=== PATIENT | female | born 1930 | race African-American/Black ===

== ENCOUNTER 2016-11-05 13:16 | Inpatient (IN) | payer MEDICARE, OTHER ==
--- NOTE | ~2016-11-05 | DS ---
Discharge Summary [facility] [address] [place]. [address] NAME: SAIRA PALM : 32 STATUS : DIS IN PAT#: [id number] AGE: 86 ADM/REG DATE : 11/05/16 MR#: [id number] REPORT SERV DATE: 11/13/16 DICTATED BY: STACY FERMIN DATE: 11/12/16 REPORT STATUS : Draft TRANSCRIBED BY: MODL DATE: 11/12/16 ADMISSION DATE: 11/05/2016 DISCHARGE DATE: 11/12/2016 REASON FOR ADMISSION: 1. Dehydration. 2. Acute kidney injury. 3. Hypernatremia. HPI: Please refer Dr. Mujica history and physical dated 11/05/2016 for complete details on the patient's admission. In brief, the patient was admitted to the Hospitalist Service for management of several issues. HOSPITAL COURSE: The patient had an uncomplicated hospital course. The patient had a recent visit to [place] [facility] at end of October after sustaining a fall. She had a negative workup and was sent back to [facility]. Of note her creatinine was 1.4 at [place]. Just a week after that episode when she visited [facility] on the 11/05/2016, her creatinine was 7.73 with a BUN of 147, procalcitonin of 4.5, sodium of 159. Clearly volume depleted. She had a lactic acid done in the ER, which was 1.9. Influenza screen which was negative. Urinalysis was positive for UTI. Urine culture eventually grew out villarreal susceptible E. coli. She was started on aggressive IV fluids. MRI of her brain without contrast was performed, which showed no acute infarction, [id number] general atrophy, large amount of MCA territory frontoparietotemporal encephalomalacia from a remote infarction. There is a right anterior fossa meningioma with associated edema. A modified barium swallow study showed no evidence of aspiration or penetration during the exam, but speech therapist recommended a pureed diet. The patient does have a known history of a thyroid mass and has been trying to get in to see an group therapy counselor or an ENT. The patient had received several volumes of fluids, her hypernatremia had resolved, her acute kidney injury had resolved although her creatinine is not at baseline. It did come down to 3 at the time of dictation. After a long talk with the daughter, the daughter who is the power of immigration attorney made it clear that the patient is a do not resuscitate and do not intubate, and I did have concerns of this being the initial phases of a vicious cycle of continual rehospitalization from dehydration. The daughter made clear to me that she did not want her mom to coming back to the hospital in any event and would like to pursue hospice, therefore, we are discharging the patient is stable condition back to [facility] with hospice. DISCHARGE DIAGNOSES: 1. Acute kidney injury, resolving with creatinine at 3 at time of discharge with baseline around 1.4. 2. Metabolic acidosis, stable. 3. E. coli urinary tract infection. 4. History of meningioma. 5. History of thyroid mass with some tracheal deviation. 6. 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 7. DNR/DNI, overall poor prognosis. Discharge Summary [address] [address] NAME: SAIRA PALM : 31 STATUS : DIS IN PAT#: [id number] AGE: 86 ADM/REG DATE : 11/05/16 MR#: [id number] REPORT SERV DATE: 11/13/16 DICTATED BY: STACY FERMIN DATE: 11/12/16 REPORT STATUS : Draft TRANSCRIBED BY: KARIN DATE: 11/12/16 PROCEDURES: Include: 1. MRI of the brain without contrast. 2. Chest x-ray. 3. Modified barium swallow study. DISCHARGE MEDICATIONS: Include: 1. Allopurinol 150 mg daily. 2. Vitamin D. 3. [place] p.r.n. pain. 4. Synthroid 25 mcg daily. 5. MiraLAX daily. 6. Pravachol 40 mg daily. 7. Senna 2 tabs daily. 8. Zofran p.r.n. 9. Amlodipine 10 mg once a day. 10.Multivitamin. 11.Duricef 1000 mg twice a day for two more days. The patient was discharged back to [facility] with [facility] under hospice. The patient was a DNR/DNI. This is Stacy Fermin MD spending over 30 minutes in discharge planing and coordination care of Ms. Palm. SHARAN/KARIN Stacy Fermin MD / [id number] CC: Stacy Fermin MD
--- NOTE | ~2016-11-05 | HP ---
History And Physical [place] [id number] [facility] [place]. [address] NAME: SAIRA PALM : 31 STATUS : ADM IN PAT#: [id number] AGE: 86 ADM/REG DATE : 11/05/16 MR#: [id number] REPORT SERV DATE: 11/05/16 DICTATED BY: GARTH MUJICA DATE: 11/05/16 REPORT STATUS : Draft TRANSCRIBED BY: MODL DATE: 11/05/16 DATE OF ADMISSION: 11/05/2016 CHIEF COMPLAINT: Multiple. HISTORY OF PRESENT ILLNESS: The patient is an 86-year-old female, who currently resides in a mcc. She has a history of a previous significant stroke it sounds like it was hemorrhagic in nature required a craniotomy. This was back in several years ago. She also suffers from probable dementia. She is aphasic from the stroke and has a right-sided hemiparesis. She communicates by grunting and pointing, so she can provide no history. Her daughter is at bedside. She reports over the last four to five months she has had diminished p.o. intake and appetite. She has been drinking or eating normally for sometime. She feels like she developed some dementia symptoms. Over the last week, she had a fall. About a week ago, she presented to [facility] had a head CT, multiple x-rays done, no fractures were found, and she was ultimately sent home. Since the fall, her daughter reports she has really declined. She is to ambulate independently despite the fact that she had a right hemiparesis. Her leg was still quite functional on the right, although her arm is always been fairly more dramatically affected by the stroke. She ambulated without a walker. The last week she has not ambulated at all. She is no longer dressing herself or feeding herself when she was previously able to do these activities. Although there seems to be months of decline, it seemed to be more progressive over the last week. When I first saw her, they were no labs available. No x-rays and so much of the data was missing. At [facility], her CT brain was negative. She has not had any documented fevers that her daughter knows of. She has not had nausea, vomiting that she knows of. She has had no diarrhea that she knows of and she does not appear to be in any pain, but it is difficult to tell as she has a difficult time communicating. The patient also has been refusing to take her medications, and she does not seem to know what to do with food in her mouth or anything in her mouth. For that matter, she simply moves around and spits it out. PAST MEDICAL HISTORY: 1. 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 2. Dementia. 3. Hypertension. 4. Congestive heart failure. 5. CAD. 6. Hyperlipidemia. 7. Constipation. 8. Anemia. 9. Cataracts. 10.Type 2 diabetes mellitus. PAST SURGICAL HISTORY: She has had right thyroid surgery, brain surgery, and skin graft. SOCIAL HISTORY: She never smoked or drank. FAMILY HISTORY: Positive for CAD. History And Physical [address] [address] NAME: SAIRA PALM : 31 STATUS : ADM IN [facility]#: [id number] AGE: 86 ADM/REG DATE : 11/05/16 MR#: [id number] REPORT SERV DATE: 11/05/16 DICTATED BY: GARTH MUJICA DATE: 11/05/16 REPORT STATUS : Draft TRANSCRIBED BY: KARIN DATE: 11/05/16 ALLERGIES: NO KNOWN DRUG ALLERGIES. HOME MEDICATIONS: Reviewed and attached. REVIEW OF SYSTEMS: 10-point review of systems obtained. Pertinent positives as mentioned in the HPI. PHYSICAL EXAMINATION: VITAL SIGNS: BP 107/63, previously she was in the 80s over 50s, temp 97.6, pulse 75, respiratory rate 16, sats 96%. GENERAL: Elderly frail-appearing white female. HEENT: Normocephalic, atraumatic. Mouth is dry. NECK: Supple. HEART: Regular rate and rhythm. LUNGS: Diminished at the bases. ABDOMEN: Soft, nontender, nondistended. EXTREMITIES: Her hands and feet are all cool to the touch, but they are symmetrically cool. She has no peripheral edema present. I could not palpate either pulse in her foot. I could not even find her pulses with the Doppler, but her legs are warm and she has no ulcerations. NEURO: She has a dense hemiparesis on the right arm. In the right leg, she has some movement about the foot and she has some contraction of the thigh when she attempts to lift her legs, but she really cannot lift her right leg off the bed. The left leg she has minimal strength, and that one, she can lift it about a half an inch off the bed, but again it is difficult to tell she does not follow commands. Her left arm, she can squeeze my hand. She is pointing and grunting. She is aphasic. Cranial nerves 2 through 12 appear to be intact. LAB AND X-RAY: TSH 0.255. Chest x-ray is essentially shows a soft tissue mass displacing her trachea to the right of midline probably from enlarged left lobe of the thyroid. White count 13.5, H and H 13.7 and 40, platelet count is 355. Coags her INR is 1.7. Lactate is 1.9. Sodium 159, potassium 5.3, chloride 124, CO2 of 20 BUN and creatinine 147 and 7.73, glucose 122. LFTs ALT is 191, AST is 129, lipase is 1237. Troponin is 0.09. Flu swab is negative. Urinalysis shows 34 whites and trace leukocyte esterase, and rare clumps with 4 rbc's. EKG shows sinus tach. ASSESSMENT/PLAN: 1. Acute kidney injury pronounced with evidence of hypernatremia and likely severe free water deficit and volume depletion. Given that she is hypotensive in the emergency department, I think first and foremost, we must correct her volume status. She is going to get a total of a 2 L bolus here then we will give her an additional 2 L normal saline IV and we will also at the same time correct her free water deficit with D5W 100. Once her sodium is less than 148, then we will change her to half-normal saline 125 for maintenance. Hopefully with hydration free water replacement, her creatinine will improve. I did discuss with her daughter the significant nature of her injury today to her kidneys. This is likely multifactorial, volume depletion, free water deficit, also lack of p.o. intake. Her daughter is not interested in her mother History And Physical [place] [address] [address] [facility] [address] NAME: SAIRA PALM : 32 STATUS : ADM IN PAT#: [id number] AGE: 86 ADM/REG DATE : 11/05/16 MR#: [id number] REPORT SERV DATE: 11/05/16 DICTATED BY: GARTH MUJICA DATE: 11/05/16 REPORT STATUS : Draft TRANSCRIBED BY: MODL DATE: 11/05/16 receiving any type of dialysis given her dementia and comorbidities, I think this makes sense. We will proceed with supportive measures in the hope that we can reverse some of this. We will do CT abdomen and pelvis to rule out urinary obstruction. We will place a Dwyer catheter. Keep in's and out's and go from there. 2. Hypernatremia likely some component of volume depletion. Given hypotension, we will hydrate aggressively. We will also replace her free water with D5W. We will do serial labs and go from there. 3. Recent fall, initial head CT negative. 4. Worsening right hemiparesis with decline in physical status. Her right leg seems weaker than it was in the past. I think it is reasonable to perform an MRI to make sure she has not had a new stroke. 5. Urinary tract infection. We will treat with IV Rocephin. Culture her urine. 6. Nonpalpable pulses at the feet. Could not find them with the Doppler; however, she was hypotensive at that time. She does not have any real ulcerations about her feet. She does appear to be in pain in her leg, I could not find it in either foot even though she has movement in the left foot and she has some movement in the right foot. I do not think this vascular issues something acute and I think given her code status and preference for comfort measures, we should not pursue this aggressively. I suspect with some hydration and improvement in her pressure. Her pulses may improve in the feet. I did not order an arterial duplex at this time as I do not think it will change our management significantly. 7. Diabetes. We will add level 1 sliding scale. 8. Dementia likely advancing with worsening symptoms, symptomatology. She may need to be considered for hospice if her creatinine does not improve quickly. 9. History of coronary artery disease. 10.History of cerebrovascular accident with expressive aphasia and right hemiparesis with somewhat worsening hemiparesis please see #2 and 3. 11.Likely thyroid mass with some compression of her trachea, she does not seem to have any respiratory difficulties that she is having maybe some swallowing difficulties. She has been eating or drinking and she has been chewing things up and then refusing to swallow. We will do a modified barium swallow to start again based on her dementia and her current ongoing acute kidney injury. We will see how things look in 24 hours before we pursue this too aggressively. 12.Disposition, pending above. ADAM/MIESHAL Garth Mujica M.D. / [id number] CC: Messi Baumann M.D.
[2016-11-05 12:18] LABS: BASOPHILS 0.2 %; BASOPHILS ABSOLUTE 0.03 10/3/uL (0.0-0.16); EOSINOPHILS 0.2 %; EOSINOPHILS ABSOLUTE 0.03 10/3/uL (0.0-0.53); IMMATURE GRANULOCYTES 0.5 %; IMMATURE GRANULOCYTES ABSOLUTE 0.07 10/3/uL (0.0-0.11); LYMPHOCYTES 14.7 %; LYMPHOCYTES ABSOLUTE 1.99 10/3/uL (0.67-4.30); MEAN CORPUS HGB CONC 34.2 g/dL (32.0-36.0); MEAN CORPUSCULAR HEMOGLOB 30.6 pg (26.0-34.0); MEAN CORPUSCULAR VOLUME 89.7 fL (80-100); MEAN PLATELET VOLUME 11.6 fL (9.2-13.0); MONOCYTES 4.8 %; MONOCYTES ABSOLUTE 0.65 10/3/uL (0.21-1.20); NEUTROPHILS 79.6 %; NEUTROPHILS ABSOLUTE 10.77 10/3/uL (2.02-8.40); NUCLEATED RED BLOOD CELLS 0.4 /100WBC (0-0); PLATELET COUNT 355 10/3/uL (150-400); RBC DISTRIBUTION WIDTH 15.5 % (12.0-16.0)
[2016-11-05 12:19] LABS: ER CBC TAT 0 Hrs 10 Mins; HEMATOCRIT 40.1 % (36.0-48.0); HEMOGLOBIN 13.7 g/dL (12.0-16.0); MANUAL DIFF NO %; RED CELL COUNT 4.47 10/6/uL (4.0-5.6); WHITE BLOOD CELLS 13.5 10/3/uL (4.5-10.5)
[2016-11-05 12:22] LABS: INTERNATIONAL NORMAL RATI 1.7 UNITS (-); PARTIAL THROMBO TIME 27.5 SEC (22.5-37.2); PROTIME (NOT ORD) 20.1 SEC (12.0-14.5)
[2016-11-05 12:31] LABS: ALBUMIN 2.9 G/DL (3.5-5.0); CHLORIDE, SERUM 124 MMOL/L (96-112); CO2 (CARBON DIOXIDE) 20 MMOL/L (24-34); POTASSIUM, SERUM 5.3 MMOL/L (3.5-5.3); SGOT(AST) 129 U/L (5-40); SGPT(ALT) 191 U/L (5-65); SODIUM, SERUM 159 MMOL/L (135-148); TOTAL BILIRUBIN 0.8 MG/DL (0-1.2)
[2016-11-05 12:32] LABS: A/G RATIO 0.6 (0.7-1.9); ALKALINE PHOSPHATASE 140 U/L (45-117); BUN (BLOOD UREA NITROGEN) 147 MG/DL (6-23); CREATININE 7.73 MG/DL (0.55-1.02); GFR AFRICAN AMERICAN 5 ML/MIN (>=60); GFR NON AFRICAN AMERICAN 4 ML/MIN (>=60); GLOBULIN 5.2 G/DL (2.5-4.1); GLUCOSE, SERUM 122 MG/DL (60-99); TOTAL PROTEIN 8.1 G/DL (6.0-8.5); TROPONIN I 0.09 NG/ML (<0.05)
[2016-11-05 12:32] LABS: LACTATE 1.9 MMOL/L (0.3-2.4)
[2016-11-05 12:55] LABS: INFLUENZA A SCREEN NEGATIVE (NEGATIVE); INFLUENZA B SCREEN NEGATIVE (NEGATIVE)
[2016-11-05 13:11] LABS: ASCORBIC ACID (UR NOT ORDER) NEG (NEG); BILIRUBIN, URINE NEGATIVE (NEG); ER URINALYSIS TAT 0 Hrs 20 Mins; KETONE, URINE TRACE MG/DL (NEG); LEUKOCYTE ESTERASE(NOT OR TRACE (NEG); NITRITE (URINE) NEG (NEG); WBC (NOT ORDERED) (RFLEX) 34 (0-5)
[~2016-11-05 13:16] MED LIST: CENTRUM PO; DITRO5 PO; GLUCPH PO; KLOR-CON M2020 MEQ PO; L80 PO; LOTE20 PO; MIRALAX POWDER1 PKT PO; NORCO1 TA1 PO; NORV10 PO; OYST-CAL500 MG PO; PRAVACHOL40 MG PO; SENTAB PO; SYN.025B PO; TINACTIN TOP; VITAMIN D1000 UNI1 PO; Z300 PO
[2016-11-05 16:13] LABS: FREE T4 1.27 NG/DL (0.76-1.46); PHOSPHORUS, SERUM 5.8 MG/DL (2.5-4.5)
[2016-11-05 16:37] LABS: PROCALCITONIN 4.47 ng/mL (<0.5)
[2016-11-06 05:54] LABS: BASOPHILS 0.2 %; BASOPHILS ABSOLUTE 0.02 10/3/uL (0.0-0.16); EOSINOPHILS 0.5 %; EOSINOPHILS ABSOLUTE 0.06 10/3/uL (0.0-0.53); HEMATOCRIT 39.4 % (36.0-48.0); HEMOGLOBIN 12.9 g/dL (12.0-16.0); IMMATURE GRANULOCYTES 0.4 %; IMMATURE GRANULOCYTES ABSOLUTE 0.05 10/3/uL (0.0-0.11); LYMPHOCYTES 14.6 %; LYMPHOCYTES ABSOLUTE 1.76 10/3/uL (0.67-4.30); MANUAL DIFF NO %; MEAN CORPUS HGB CONC 32.7 g/dL (32.0-36.0); MEAN CORPUSCULAR HEMOGLOB 30.4 pg (26.0-34.0); MEAN CORPUSCULAR VOLUME 92.7 fL (80-100); MEAN PLATELET VOLUME 11.4 fL (9.2-13.0); MONOCYTES 8.7 %; MONOCYTES ABSOLUTE 1.05 10/3/uL (0.21-1.20); NEUTROPHILS 75.6 %; NEUTROPHILS ABSOLUTE 9.13 10/3/uL (2.02-8.40); PLATELET COUNT 289 10/3/uL (150-400); RBC DISTRIBUTION WIDTH 15.6 % (12.0-16.0); RED CELL COUNT 4.25 10/6/uL (4.0-5.6); WHITE BLOOD CELLS 12.1 10/3/uL (4.5-10.5)
[2016-11-06 06:14] LABS: CALCIUM, SERUM 8.3 MG/DL (8.5-10.4); CHLORIDE, SERUM 122 MMOL/L (96-112); CO2 (CARBON DIOXIDE) 19 MMOL/L (24-34); CREATININE 7.24 MG/DL (0.55-1.02); GFR AFRICAN AMERICAN 5 ML/MIN (>=60); GFR NON AFRICAN AMERICAN 5 ML/MIN (>=60); POTASSIUM, SERUM 4.9 MMOL/L (3.5-5.3)
[2016-11-06 06:15] LABS: BUN (BLOOD UREA NITROGEN) 139 MG/DL (6-23); GLUCOSE, SERUM 167 MG/DL (60-99); SODIUM, SERUM 156 MMOL/L (135-148)
[2016-11-07 07:05] LABS: BASOPHILS 0.1 %; BASOPHILS ABSOLUTE 0.01 10/3/uL (0.0-0.16); EOSINOPHILS 1.4 %; HEMOGLOBIN 11.1 g/dL (12.0-16.0); IMMATURE GRANULOCYTES 1.7 %; IMMATURE GRANULOCYTES ABSOLUTE 0.12 10/3/uL (0.0-0.11); LYMPHOCYTES ABSOLUTE 1.44 10/3/uL (0.67-4.30); MEAN CORPUS HGB CONC 32.1 g/dL (32.0-36.0); MEAN CORPUSCULAR HEMOGLOB 29.4 pg (26.0-34.0); MEAN CORPUSCULAR VOLUME 91.8 fL (80-100); MEAN PLATELET VOLUME 11.4 fL (9.2-13.0); MONOCYTES 5.1 %; MONOCYTES ABSOLUTE 0.37 10/3/uL (0.21-1.20); NEUTROPHILS 71.7 %; NEUTROPHILS ABSOLUTE 5.16 10/3/uL (2.02-8.40); PLATELET COUNT 267 10/3/uL (150-400); RBC DISTRIBUTION WIDTH 15.2 % (12.0-16.0); RED CELL COUNT 3.77 10/6/uL (4.0-5.6)
[2016-11-07 07:08] LABS: HEMATOCRIT 34.6 % (36.0-48.0); MANUAL DIFF NO %; WHITE BLOOD CELLS 7.2 10/3/uL (4.5-10.5)
[2016-11-07 07:15] LABS: BUN (BLOOD UREA NITROGEN) 112 MG/DL (6-23); CALCIUM, SERUM 7.4 MG/DL (8.5-10.4); CHLORIDE, SERUM 119 MMOL/L (96-112); CO2 (CARBON DIOXIDE) 16 MMOL/L (24-34); CREATININE 6.06 MG/DL (0.55-1.02); GFR AFRICAN AMERICAN 7 ML/MIN (>=60); GFR NON AFRICAN AMERICAN 6 ML/MIN (>=60); GLUCOSE, SERUM 100 MG/DL (60-99); PHOSPHORUS, SERUM 3.2 MG/DL (2.5-4.5); POTASSIUM, SERUM 4.3 MMOL/L (3.5-5.3); SODIUM, SERUM 148 MMOL/L (135-148)
[2016-11-08 07:13] LABS: BASOPHILS 0.2 %; BASOPHILS ABSOLUTE 0.02 10/3/uL (0.0-0.16); EOSINOPHILS 0.7 %; EOSINOPHILS ABSOLUTE 0.06 10/3/uL (0.0-0.53); HEMATOCRIT 35.4 % (36.0-48.0); HEMOGLOBIN 12.1 g/dL (12.0-16.0); IMMATURE GRANULOCYTES 1.9 %; IMMATURE GRANULOCYTES ABSOLUTE 0.16 10/3/uL (0.0-0.11); LYMPHOCYTES 11.2 %; LYMPHOCYTES ABSOLUTE 0.95 10/3/uL (0.67-4.30); MANUAL DIFF NO %; MEAN CORPUS HGB CONC 34.2 g/dL (32.0-36.0); MEAN CORPUSCULAR HEMOGLOB 29.8 pg (26.0-34.0); MEAN CORPUSCULAR VOLUME 87.2 fL (80-100); MEAN PLATELET VOLUME 11.1 fL (9.2-13.0); MONOCYTES 7.4 %; MONOCYTES ABSOLUTE 0.63 10/3/uL (0.21-1.20); NEUTROPHILS 78.6 %; NEUTROPHILS ABSOLUTE 6.65 10/3/uL (2.02-8.40); PLATELET COUNT 237 10/3/uL (150-400); RED CELL COUNT 4.06 10/6/uL (4.0-5.6); WHITE BLOOD CELLS 8.5 10/3/uL (4.5-10.5)
[2016-11-08 07:26] LABS: CHLORIDE, SERUM 111 MMOL/L (96-112); PHOSPHORUS, SERUM 2.9 MG/DL (2.5-4.5)
[2016-11-08 07:27] LABS: SODIUM, SERUM 141 MMOL/L (135-148)
[2016-11-08 07:28] LABS: BUN (BLOOD UREA NITROGEN) 95 MG/DL (6-23); CREATININE 5.49 MG/DL (0.55-1.02); GFR AFRICAN AMERICAN 8 ML/MIN (>=60); GFR NON AFRICAN AMERICAN 7 ML/MIN (>=60); GLUCOSE, SERUM 184 MG/DL (60-99)
[2016-11-08 07:29] LABS: POTASSIUM, SERUM 4.8 MMOL/L (3.5-5.3)
[2016-11-08 07:44] LABS: CO2 (CARBON DIOXIDE) 11 MMOL/L (24-34)
[2016-11-09 07:26] LABS: BASOPHILS 0.2 %; BASOPHILS ABSOLUTE 0.01 10/3/uL (0.0-0.16); EOSINOPHILS 0.8 %; EOSINOPHILS ABSOLUTE 0.05 10/3/uL (0.0-0.53); IMMATURE GRANULOCYTES 1.6 %; LYMPHOCYTES 19.3 %; LYMPHOCYTES ABSOLUTE 1.18 10/3/uL (0.67-4.30); MEAN CORPUS HGB CONC 34.6 g/dL (32.0-36.0); MEAN CORPUSCULAR HEMOGLOB 30.2 pg (26.0-34.0); MEAN CORPUSCULAR VOLUME 87.3 fL (80-100); MEAN PLATELET VOLUME 10.7 fL (9.2-13.0); MONOCYTES 5.1 %; MONOCYTES ABSOLUTE 0.31 10/3/uL (0.21-1.20); NEUTROPHILS ABSOLUTE 4.46 10/3/uL (2.02-8.40); PLATELET COUNT 285 10/3/uL (150-400); RBC DISTRIBUTION WIDTH 13.7 % (12.0-16.0); RED CELL COUNT 3.31 10/6/uL (4.0-5.6); WHITE BLOOD CELLS 6.1 10/3/uL (4.5-10.5)
[2016-11-09 07:28] LABS: HEMATOCRIT 28.9 % (36.0-48.0); MANUAL DIFF NO %
[2016-11-09 07:38] LABS: CALCIUM, SERUM 7.4 MG/DL (8.5-10.4); CHLORIDE, SERUM 104 MMOL/L (96-112); GFR AFRICAN AMERICAN 9 ML/MIN (>=60); GFR NON AFRICAN AMERICAN 7 ML/MIN (>=60); GLUCOSE, SERUM 161 MG/DL (60-99); PHOSPHORUS, SERUM 3.1 MG/DL (2.5-4.5); SODIUM, SERUM 142 MMOL/L (135-148)
[2016-11-09 07:40] LABS: BUN (BLOOD UREA NITROGEN) 87 MG/DL (6-23); CO2 (CARBON DIOXIDE) 27 MMOL/L (24-34); CREATININE 4.96 MG/DL (0.55-1.02); POTASSIUM, SERUM 3.6 MMOL/L (3.5-5.3)
[2016-11-10 08:04] LABS: BASOPHILS 0.2 %; BASOPHILS ABSOLUTE 0.01 10/3/uL (0.0-0.16); EOSINOPHILS 1.4 %; EOSINOPHILS ABSOLUTE 0.07 10/3/uL (0.0-0.53); HEMATOCRIT 29.2 % (36.0-48.0); HEMOGLOBIN 9.8 g/dL (12.0-16.0); IMMATURE GRANULOCYTES 1.4 %; IMMATURE GRANULOCYTES ABSOLUTE 0.07 10/3/uL (0.0-0.11); LYMPHOCYTES 25.7 %; LYMPHOCYTES ABSOLUTE 1.32 10/3/uL (0.67-4.30); MEAN CORPUS HGB CONC 33.6 g/dL (32.0-36.0); MEAN CORPUSCULAR HEMOGLOB 29.8 pg (26.0-34.0); MEAN CORPUSCULAR VOLUME 88.8 fL (80-100); MEAN PLATELET VOLUME 10.6 fL (9.2-13.0); MONOCYTES 8.2 %; MONOCYTES ABSOLUTE 0.42 10/3/uL (0.21-1.20); NEUTROPHILS 63.1 %; NEUTROPHILS ABSOLUTE 3.25 10/3/uL (2.02-8.40); PLATELET COUNT 294 10/3/uL (150-400); RBC DISTRIBUTION WIDTH 13.7 % (12.0-16.0); RED CELL COUNT 3.29 10/6/uL (4.0-5.6); WHITE BLOOD CELLS 5.1 10/3/uL (4.5-10.5)
[2016-11-10 08:09] LABS: MANUAL DIFF NO %
[2016-11-10 08:13] LABS: CALCIUM, SERUM 7.4 MG/DL (8.5-10.4); CHLORIDE, SERUM 100 MMOL/L (96-112); PHOSPHORUS, SERUM 2.8 MG/DL (2.5-4.5); SODIUM, SERUM 144 MMOL/L (135-148)
[2016-11-10 08:14] LABS: BUN (BLOOD UREA NITROGEN) 71 MG/DL (6-23); CO2 (CARBON DIOXIDE) 33 MMOL/L (24-34); CREATININE 4.33 MG/DL (0.55-1.02); GFR AFRICAN AMERICAN 10 ML/MIN (>=60); GFR NON AFRICAN AMERICAN 9 ML/MIN (>=60); GLUCOSE, SERUM 125 MG/DL (60-99)
[2016-11-12 07:13] LABS: BASOPHILS 0.3 %; BASOPHILS ABSOLUTE 0.02 10/3/uL (0.0-0.16); EOSINOPHILS 1.1 %; EOSINOPHILS ABSOLUTE 0.08 10/3/uL (0.0-0.53); HEMATOCRIT 27.5 % (36.0-48.0); HEMOGLOBIN 9.4 g/dL (12.0-16.0); IMMATURE GRANULOCYTES 1.1 %; IMMATURE GRANULOCYTES ABSOLUTE 0.08 10/3/uL (0.0-0.11); LYMPHOCYTES 23.8 %; LYMPHOCYTES ABSOLUTE 1.77 10/3/uL (0.67-4.30); MEAN CORPUS HGB CONC 34.2 g/dL (32.0-36.0); MEAN CORPUSCULAR HEMOGLOB 29.4 pg (26.0-34.0); MEAN PLATELET VOLUME 10.3 fL (9.2-13.0); MONOCYTES 14.9 %; MONOCYTES ABSOLUTE 1.11 10/3/uL (0.21-1.20); NEUTROPHILS 58.8 %; NEUTROPHILS ABSOLUTE 4.39 10/3/uL (2.02-8.40); PLATELET COUNT 276 10/3/uL (150-400); RBC DISTRIBUTION WIDTH 13.6 % (12.0-16.0)
[2016-11-12 07:15] LABS: MANUAL DIFF NO %; MEAN CORPUSCULAR VOLUME 85.9 fL (80-100); WHITE BLOOD CELLS 7.5 10/3/uL (4.5-10.5)
[2016-11-12 07:27] LABS: CHLORIDE, SERUM 92 MMOL/L (96-112); CO2 (CARBON DIOXIDE) 30 MMOL/L (24-34); GFR AFRICAN AMERICAN 15 ML/MIN (>=60); GFR NON AFRICAN AMERICAN 13 ML/MIN (>=60); GLUCOSE, SERUM 132 MG/DL (60-99); PHOSPHORUS, SERUM 3.1 MG/DL (2.5-4.5)
[2016-11-12 07:28] LABS: BUN (BLOOD UREA NITROGEN) 48 MG/DL (6-23); CREATININE 3.08 MG/DL (0.55-1.02); POTASSIUM, SERUM 3.7 MMOL/L (3.5-5.3); SODIUM, SERUM 135 MMOL/L (135-148)
== END 2016-11-12 17:22 | DRG 683 ==
LOC: ER 13:16 → 7NO 15:24
PROVIDERS: Internal Medicine; Physician Assistant
PROC: 02HV33Z Insertion of Infusion Device into Superior Vena Cava, Percutaneous Approach (ICD-10-PCS; principal; 2016-11-08)
DX: N17.9 Acute kidney failure, unspecified (principal); E87.0 Hyperosmolality and hypernatremia; E87.2 Acidosis; N39.0 Urinary tract infection, site not specified; E11.9 Type 2 diabetes mellitus without complications; B96.20 Unspecified Escherichia coli [E. coli] as the cause of diseases classified elsewhere; E86.0 Dehydration; I69.391 Dysphagia following cerebral infarction; I69.320 Aphasia following cerebral infarction; Z66 Do not resuscitate
CPT/HCPCS: 36569-52; 70551; 71010; 74000; 74230; 80048; 80053; 81001; 82140; 82962; 83520; 83605; 83690; 83735; 84100; 84145; 84439; 84484; 85025; 85610; 85730; 87040; 87077; 87086; 87186; 87804; 92611-GN; 97110-GP; 97163-GP; 97530-GP; 99285; A9270-GY; C1751; G8996-CK-GN; G8997-CK-GN; G8998-CK-GN; J0690; J2405; J3411